=== PATIENT | female | born 1980 | race Caucasian/White ===

== ENCOUNTER 2016-06-06 07:38 | Emergency (ER) | payer SELFPAY ==
[~2016-06-06] VITALS: Ht 157.5 cm; Wt 91.6 kg
[~2016-06-06 07:38] MED LIST: CIPR500T94 PO; HYDR-971 PO; LISI10TA2 PO
[2016-06-06] MEDS ORDERED: IV NORMAL SALINE 1000ML BAG 1,000 ML IV SCH (08:11)
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
[2016-06-06] MEDS ORDERED: PROCHLORPERAZINE 10 MG/2 ML VIAL. IV ONE (08:15)
[2016-06-06] MEDS ORDERED: FAMOTIDINE 20 MG/2 ML VIAL IVP ONE (08:15)
[2016-06-06 08:21] LABS: BILIRUBIN,URINE MODERATE (NEG); GLUCOSE,URINE NEGATIVE (NEG); NITRITE,URINE POSITIVE (NEG); PROTEIN,URINE 100 mg/dL (NEG-TRACE)
[2016-06-06 08:24] LABS: NEG OBC UR NEG; POS OBC UR POS
[2016-06-06 08:29] LABS: BASO # 0.1 x10^3/uL (0.0-0.2); BASO % 1 % (0-3); EOS % 1 % (0-3); HEMATOCRIT 39.3 % (36.0-47.0); HEMOGLOBIN 13.5 g/dL (12.0-15.5); LYMPH # 1.5 x10^3/uL (1.0-4.8); LYMPH % 15 % (24-48); MEAN CORPUSCULAR HEMOGLOBIN 30 pg (25-35); MEAN CORPUSCULAR HGB CONC 34 g/dL (31-37); MEAN CORPUSCULAR VOLUME 86 fL (79-100); MONO % 10 % (0-9); NEUT % 74 % (31-73); PLATELET COUNT 326 x10^3/uL (140-400); RED BLOOD COUNT 4.56 x10^6/uL (3.50-5.40); RED CELL DISTRIBUTION WIDTH 13.2 % (11.5-14.5); WHITE BLOOD COUNT 10.2 x10^3/uL (4.0-11.0)
[2016-06-06 08:40] LABS: ALBUMIN 4.2 g/dL (3.4-5.0); ALBUMIN/GLOBULIN RATIO 1.2 (1.0-1.7); CALCIUM 9.1 mg/dL (8.5-10.1); CREATININE 0.9 mg/dL (0.6-1.0); GFR 71.7; TOTAL BILIRUBIN 2.4 mg/dL (0.2-1.0); TOTAL PROTEIN 7.8 g/dL (6.4-8.2)
[2016-06-06 08:42] LABS: BACTERIA,URINE FEW /HPF (0-FEW); SQUAMOUS EPITHELIAL CELL,UR MANY /LPF
[2016-06-06 08:44] LABS: POTASSIUM 2.9 mmol/L (3.5-5.1)
[2016-06-06 08:51] LABS: BARBITURATES NEG (NEG); BENZODIAZEPINES NEG (NEG); CANNABINOIDS POS (NEG); COCAINE POS (NEG); ETHANOL, URINE NEG (NEG); METHADONE NEG (NEG); OPIATES NEG (NEG); PHENCYCLIDINE NEG (NEG)
[2016-06-06] MEDS ORDERED: POTASSIUM CHLORIDE 20 MEQ TABLET.ER. PO ONE (09:00)
[2016-06-06] MEDS ORDERED: CEFTRIAXONE 1GM IVPB FOR OMNI 50 ML IV ONE (09:00)
--- NOTE | 2016-06-06 10:51 | EKG ---
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
--- NOTE | 2016-06-06 10:52 | RAD ---
PROCEDURE Limited abdominal ultrasound. HISTORY Nausea and vomiting. Elevated lipase. Abdominal pain. TECHNIQUE Right upper quadrant ultrasound was performed. COMPARISON March 25, 2015. FINDINGS Pancreas is echogenic, evaluation limited by bowel gas and body habitus. Liver is mildly increased in echogenicity. There is no discrete hepatic mass. Common bile duct measures 4 millimeters. Right kidney is without hydronephrosis or mass. IVC is patent. IMPRESSION Fatty infiltration of the liver. Electronically signed by: Thierno Tam MD (Jun 06, 2016 10:50:47)
[2016-06-06] MEDS ORDERED: SULF1TAB24 PO (11:16)
[2016-06-06 11:25] VITALS: BP 145/69
[2016-06-07 17:13] LABS: HEP A IGM ABDY Negative (Negative)
== END 2016-06-06 11:26 | disposition home or self-care (01) ==
LOC: ER 07:38
DX: N39.0 Urinary tract infection, site not specified (principal); R79.89 Other specified abnormal findings of blood chemistry; R19.7 Diarrhea, unspecified; I10 Essential (primary) hypertension; E87.6 Hypokalemia; R45.1 Restlessness and agitation; Z98.51 Tubal ligation status
CPT/HCPCS: 36415; 76705; 80053; 80074; 81001; 81025; 83690; 85027; 87086; 93005; 96361; 96365; 96375; 99285; G0481; J0690; J0780; J7030; S0028

== ENCOUNTER 2018-10-25 12:57 | Emergency (ER) | payer OTHER ==
[~2018-10-25] VITALS: Ht 149.9 cm; Wt 99.8 kg
[~2018-10-25 12:57] MED LIST changes: +HYDR-3164 PO; -HYDR-971 PO; +SULF1TAB24 PO
[2018-10-25 14:11] VITALS: BP 145/99
--- NOTE | 2018-10-25 14:56 | RAD ---
EXAM: Left ankle, 3 views. HISTORY: Pain. COMPARISON: None. FINDINGS: 3 views of the left ankle are obtained. There is no fracture, dislocation or subluxation. The ankle mortise is intact. No osteochondral lesion is seen. There is a small plantar spur. IMPRESSION: No acute osseous finding. Electronically signed by: Katharine Arceo MD (10/25/2018 2:53 PM) [id number]
[2018-10-25] MEDS ORDERED: DICL50TA4 PO (15:23)
--- NOTE | 2018-10-25 15:23 | PHYS DOC ---
Past Medical History Past Medical History: Hypertension Additional Past Medical Histor: heart murmur, cardiac arrest x 2 "right after I had my kids" Past Surgical History: Tubal ligation Additional Past Surgical Histo: ERCP Alcohol Use: None Drug Use: None Adult General Chief Complaint Chief Complaint: ANKLE PROBLEM HPI HPI Patient is a 38 year old female with no significant medical history who presents to the ED today complaining of a throbbing 8 out of 10 left anterior ankle pain that began yesterday while in the pool. Patient describes the pain as sharp and intermittent. She states the pain is worse on weight bearing. Denies anything specifically relieving the pain. She states she would like a note for work as well. Review of Systems Review of Systems Constitutional: Denies fever or chills [] Musculoskeletal: Reports left ankle pain Integument: Denies rash or skin lesions [] Neurologic: Denies headache, focal weakness or sensory changes [] All other systems were reviewed and found to be within normal limits, except as documented in this note. Allergies Allergies Allergies Coded Allergies Type Severity Reaction Last Updated Verified No Known Drug Allergies 06/04/14 No Physical Exam Physical Exam Constitutional: Well developed, well nourished, no acute distress, non-toxic appearance. [] [] Skin: Warm, dry, no erythema, no rash. [] Back: No tenderness, no CVA tenderness. [] Extremities: Left lower extremity with no obvious deformity. Slight tenderness on palpation of the left anterior ankle. Full range of motion to the left ankle, foot and toes. +2 left pedal pulse. Cap refill less than 2 seconds the left toes. Neurologic: Alert and oriented X 3, normal motor function, normal sensory function, no focal deficits noted. [] Psychologic: Affect normal, judgement normal, mood normal. [] Current Patient Data Vital Signs Vital Signs Date Time Temp Pulse Resp B/P (MAP) Pulse Ox O2 Delivery O2 Flow Rate FiO2 10/25/18 14:11 97.4 85 18 145/99 (114) 96 Room Air 97.4 EKG EKG [] Radiology/Procedures Radiology/Procedures PROCEDURE: ANKLE LEFT 3V EXAM: Left ankle, 3 views. HISTORY: Pain. COMPARISON: None. FINDINGS: 3 views of the left ankle are obtained. There is no fracture, dislocation or subluxation. The ankle mortise is intact. No osteochondral lesion is seen. There is a small plantar spur. IMPRESSION: No acute osseous finding. Electronically signed by: Katharine Arceo MD (10/25/2018 2:53 PM) [facility] DICTATED and SIGNED BY: KATHARINE ARCEO MD DATE: 10/25/18 1453 Course & Med Decision Making Course & Med Decision Making Pertinent Labs and Imaging studies reviewed. (See chart for details) This is a 38-year-old female patient who presents to the ED today complaining of left ankle pain that began yesterday while at the pool. Left ankle x-rays interpreted by the radiologist are negative for any acute findings. Air cast applied to the left ankle. Ice elevation encouraged. Diclofenac for pain. Follow-up with orthopedic doctor in 1-2 weeks. Dragon Disclaimer Dragon Disclaimer This electronic medical record was generated, in whole or in part, using a voice recognition dictation system. Departure Departure Impression: Primary Impression: Left ankle sprain Disposition: HOME, SELF-CARE Condition: STABLE Referrals: NO PCP (PCP) LAURA JIMENEZ MD followup in 1 week Patient Instructions: Ankle Sprain, [id number] Additional Instructions: You were seen for left ankle sprain. Your left ankle x-rays are negative for any acute findings. Try to ice and elevate the extremity. Take the prescribed medications as needed for pain. Follow-up with your own doctor the provided orthopedic doctor in 1-2 weeks. Wear the provided air cast as needed and tolerated. Scripts Diclofenac Sodium (DICLOFENAC SODIUM) 50 Mg Tablet.dr 1 TAB PO BID, #20 TAB 0 Refills Prov: LYRIC AG APRN 10/25/18 Problem Qualifiers Primary Impression: Left ankle sprain Encounter type: initial encounter Involved ligament of ankle: unspecified ligament Qualified Codes: S93.402A - Sprain of unspecified ligament of left ankle, initial encounter LYRIC AG APRN Oct 25, 2018 15:23
== END 2018-10-25 15:35 | disposition home or self-care (01) ==
LOC: ER 12:57
DX: S93.492A Sprain of other ligament of left ankle, initial encounter (principal); I10 Essential (primary) hypertension; Z98.51 Tubal ligation status; X58.XXXA Exposure to other specified factors, initial encounter; Y93.11 Activity, swimming; Y92.89 Other specified places as the place of occurrence of the external cause; Y99.8 Other external cause status
CPT/HCPCS: 73610; 99284; L4350